=== PATIENT | male | born 1945 | race Caucasian/White ===

== ENCOUNTER 2021-01-01 21:54 | Emergency (ER) | payer OTHER ==
[~2021-01-01] VITALS: Ht 182.9 cm; Wt 78.5 kg
[2021-01-01] MEDS ORDERED: SODIUM BICARBONATE 8.4% 50 MEQ/50 ML DISP.SYRIN IV ONE (21:57)
[2021-01-01] MEDS ORDERED: CALCIUM CHLORIDE 1 GM/10 ML DISP.SYRIN IV ONE (21:57)
[2021-01-01] MEDS ORDERED: EPINEPHRINE 1:10,000 1 MG/10 ML DISP.SYRIN IV ONE (21:57)
--- NOTE | 2021-01-01 22:10 | NUR ---
Patient appears tachypneic, in respiratory distress, anxious, and pale. Patient was placed in high-fowlers position, non-rebreather 15 LPM. MD Sparks made aware.
--- NOTE | 2021-01-01 22:12 | NUR ---
Respiratory called to bedside of patient. Chest x-ray called to bed-side of patient. Patient has become unconscious. Ventilations assisted with bag-valve mask while patient is being prepared for intubation.
--- NOTE | 2021-01-01 22:25 | NUR ---
Patient intubated by MD Sparks: ET tube size: 7.5 23 cm lip AC Rate 18 TV 550 FIO2 100% PEEP 5
--- NOTE | 2021-01-01 22:34 | NUR ---
Patient became bradycardic with rate of 37, MD Sparks made aware. Verbal orders for 0.5mg of atropine given.
--- NOTE | 2021-01-01 22:40 | NUR ---
Verbal orders given by MD Sparks for 1mg Epinephrene IV stat.
--- NOTE | 2021-01-01 22:41 | NUR ---
Verbal orders given by MD Sparks for 1 gram of calcium chloride IV STAT.
[2021-01-01] MEDS ORDERED: ATROPINE SULFATE 1 MG/10 ML DISP.SYRIN ONE ×2 (22:42)
--- NOTE | 2021-01-01 22:42 | NUR ---
Verbal orders given for one ampule of bicarbonate IV STAT.
--- NOTE | 2021-01-01 22:43 | NUR ---
Verbal orders given for one ampule of bicarbonate IV STAT.
--- NOTE | 2021-01-01 22:44 | NUR ---
Verbal orders given for 1mg epinephrene IV STAT by MD Sparks.
[2021-01-01] MEDS ORDERED: ATROPINE SULFATE 1 MG/10 ML DISP.SYRIN IV ONE (22:45)
[2021-01-01] MEDS ORDERED: EPINEPHRINE 1 MG/1 ML AMP ONE (22:45)
--- NOTE | 2021-01-01 22:49 | NUR ---
Patient pronounced by MD Sparks.
--- NOTE | 2021-01-01 22:49 | NUR ---
Patient is now asystole.
--- NOTE | 2021-01-01 22:56 | NUR ---
Called [facility] to open case on patient.
--- NOTE | 2021-01-01 23:05 | NUR ---
MD Acevedo from [facility] called back. Connected to MD Sparks.
[2021-01-01 23:16] LABS: HEMATOCRIT 29.3 % (36.7-47.1); MEAN CORPUSCULAR HEMOGLOBIN 30.9 uug (23.8-33.4); MEAN CORPUSCULAR VOLUME 102.2 fL (73.0-96.2); PLATELET COUNT (AUTO) 300 K/uL (152-348)
[2021-01-01 23:20] LABS: CARBON DIOXIDE 18 mmol/L (21-32); CHLORIDE 112 mmol/L (98-107); CREATININE 3.3 mg/dL (0.6-1.3); GLUCOSE 183 mg/dL (74-106); POTASSIUM 3.6 mmol/L (3.5-5.1); UREA NITROGEN, BLOOD 62 mg/dL (7-18)
--- NOTE | 2021-01-01 23:20 | NUR ---
[facility] Mr. Irby at reporting desk states that the patient is not a employment services director's case.
--- NOTE | 2021-01-01 23:23 | NUR ---
[facility] called and notified of patient expiration. Spoke with Tyler Valera the family careers adviser. Case number is [id number]. Normal saline drops were placed on the patient's eyes per request of [facility]. and patient's eyes were shut.
--- NOTE | 2021-01-02 00:32 | NUR ---
Spoke with Baylee from [facility], ETA of crew to pick decedent will be 1-1.5 hours.
--- NOTE | 2021-01-02 01:03 | NUR ---
[facility] product support representative Alie called back, notifed that patient will be picked up by [facility].
--- NOTE | 2021-01-02 01:19 | NUR ---
PATIENT INTUBATED APPROX, 22:23 ,PT WITH 100% AMBU BAG AND MASK VENTILATION, 7.5 ET/TUBE USED WITH ANCHOR FAST IN PLACE, 23CM LIP LINE, INITIAL VENT SETTINGS, A/C 18 VT 550ML, 100% FIO2 , WITH PEEP 5. 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
--- NOTE | 2021-01-02 02:50 | NUR ---
[facility] eligibility services representative Andrew arrived to picker/puller and transport decedent to [facility].
[2021-01-02 03:01] VITALS: BP 0/0
--- NOTE | 2021-01-02 03:08 | NUR ---
[facility] [employer] public utilities sales representative Sil called to check on patient's status and location. Informed her patient has been taken by [facility].
== END 2021-01-02 03:08 ==
LOC: ER 21:56
DX: I26.99 Other pulmonary embolism without acute cor pulmonale (principal); C80.1 Malignant (primary) neoplasm, unspecified; C78.7 Secondary malignant neoplasm of liver and intrahepatic bile duct; C78.00 Secondary malignant neoplasm of unspecified lung; C78.89 Secondary malignant neoplasm of other digestive organs; I50.9 Heart failure, unspecified; E11.9 Type 2 diabetes mellitus without complications; Z92.21 Personal history of antineoplastic chemotherapy
CPT/HCPCS: 31500; 36415; 71045; 80048; 83605; 83880; 84145; 85025; 85379; 87040 ×2; 92950; 93005; 99291; J0171; J0461 ×2; J3490 ×2; 70030-TC; A4663; J7030